=== PATIENT | female | born 1975 | race Caucasian/White ===

== ENCOUNTER 2016-07-30 09:43 | Inpatient (IN) | payer MEDICARE, BC ==
[2016-07-30] MEDS ORDERED: Midazolam* 1 MG/ML 10 ML VIAL (10 MG) IV ONE (10:02)
[2016-07-30 10:17] LABS: ALT 9 U/L (7-52); Albumin 3.2 g/dL (3.2-5.2); Alkaline Phosphatase 131 U/L (34-104); BUN/Creatinine Ratio 6.2 (8-20); Blood Urea Nitrogen 64 mg/dL (6-24); CO2 Carbon Dioxide 20 mmol/L (22-32); Calcium 9.4 mg/dL (8.6-10.3); Chloride 95 mmol/L (101-111); Cholesterol 141 mg/dL; EGFR African American 5.3 (>60); EGFR Non-African American 4.1 (>60); Globulin 4.1 g/dL (2-4); Glucose 217 mg/dL (70-100); HDL Cholesterol 35.1 mg/dL; LDL Cholesterol 78 mg/dL; Sodium 138 mmol/L (133-145); Total Protein 7.3 g/dL (6.4-8.9); Triglycerides 140 mg/dL
[2016-07-30 10:21] LABS: Hematocrit 34 % (35-47); Hemoglobin 10.4 g/dl (12.0-16.0); Mean Corpuscular HGB Conc 30 g/dl (31-36); Mean Corpuscular Hemoglobin 27 pg (27-31); Mean Corpuscular Volume 88 fL (80-97); Mean Platelet Volume 9 um3 (7.4-10.4); Red Cell Distribution Width 17 % (10.5-15); White Blood Count 20.4 10^3/ul (3.5-10.8)
[2016-07-30 10:23] LABS: Comments Flag Yes
[2016-07-30 10:26] LABS: Troponin I 0.15 ng/mL (<0.04)
--- NOTE | 2016-07-30 10:45 | RAD ---
INDICATION: Neurologic change. Code watson COMPARISON: CT brain November 30, 2015 TECHNIQUE: Noncontrast axial source images were acquired from the skull base to the vertex. FINDINGS: Ventricles/sulci: There is mild volume loss with compensatory dilatation of the CSF spaces. There is blood within the fourth ventricle. Brain parenchyma: The left thalamic hemorrhage has resolved and there are the sequela of this process which was acute at the time of the November 30, 2015 study. There is new pontine hemorrhage measuring 2.4 x 2.6 cm in transverse dimensions. There is extension of the hemorrhage into the fourth ventricle as noted above. There is mass effect on the sun'aq circummesocephalic cistern. Bifrontal and right occipital encephalomalacic changes are noted in addition to the left thalamic changes which are associated with mild volume loss. There are left basal ganglia consultations. Intracranial hemorrhage: Pontine hemorrhage as noted above. Extra-axial spaces: There are no definitive abnormal extra axial fluid collections or evidence of extra-axial mass. Calvarium: There is no calvarial fracture or other calvarial abnormality. Scalp: There is no evidence of scalp or extracalvarial soft tissue abnormality. Paranasal sinuses/mastoid: The paranasal sinuses and mastoid air cells are clear. Other: None. IMPRESSION: 1. 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 Extension of hemorrhage into the fourth ventricle. No interval development of hydrocephalus at this time. 2. Sequela of prior infarcts as described. Resolution of hemorrhagic lesion left thalamus. 3. Calcifications left basal ganglia Findings called to emergency department.
[2016-07-30 10:59] LABS: Anion Gap 23 mmol/L (2-11)
[2016-07-30] MEDS ORDERED: Propofol* 500 MG/50 ML BTL IV SCH (11:00)
--- NOTE | 2016-07-30 11:08 | RAD ---
INDICATION: Altered mental status. COMPARISON: Comparison is made with a prior chest x-ray study from November 26, 2015. TECHNIQUE: A portable view of the chest was obtained. FINDINGS: The patient is status post intubation. The endotracheal tube tip is at the dawson. Recommend repositioning. There is a nasogastric tube which ends is normal course. The catheter tip projects in the left upper quadrant. The heart is within normal limits in size. The lungs are clear. No pleural effusion is seen. The results of this exam were discussed with the referring clinician. IMPRESSION: THE ENDOTRACHEAL TUBE TIP IS LOW IN POSITION, RECOMMEND REPOSITIONING.
[2016-07-30] MEDS ORDERED: Propofol* 100 ML IV SCH (12:00)
--- NOTE | 2016-07-30 12:00 | RAD ---
INDICATION: Endotracheal tube repositioning. COMPARISON: Comparison is made with a prior chest x-ray study of the same date from approximately one hour earlier. TECHNIQUE: A portable view of the chest was obtained. FINDINGS: Cardiac and mediastinal contours appear to be within normal limits. The patient is status post intubation. The endotracheal tube has been repositioned. The catheter tip projects over the midline just below the level of the clavicular heads in normal position. There is a nasogastric tube which demonstrates normal course. The tip projects in the left upper quadrant. The lungs are clear. No pleural effusion is seen. There is increased density which projects over the right shoulder likely external to the patient. IMPRESSION: STATUS POST REPOSITIONING OF THE ENDOTRACHEAL TUBE.
--- NOTE | 2016-07-30 12:33 | CONSULT ---
Consult Consult: Neurosurgery Consult Date of consult: 07/30/16 Reason for consult: Pontine bleed HPI: This is a 40 year old female with past medical history significant for HTN , type I diabetes, renal failure on dialysis and thalamic bleed in 2016, who presented to the [facility] ED today after she was found unresponsive by her . Per her , she was drinking coffee and he heard her gasp. He returned to the room to find her unresponsive and therefore called 911. She was intubated in the emergency department. Past medical history: 1. HTN 2. End stage renal disease on dialysis 3. Type I diabetes 4. Peripheral artery disease 5. Asthma 6. History of CVA in 2014 7. History of thalamic bleed in 2016 Past surgical history: 1. Lumpectomy 2. Metatarsal removal 3. Laser eye surgery 4. Loop recorder placement 5. Peritoneal dialysis catheter placement Home medications: 1. Insulin GLARGINE(*) [Lantus(*)] 11 units SUBCUT BEDTIME 08/22/14 [History Confirmed 07/30/16] 2. amLODIPine TAB* [Norvasc 5 mg TAB*] 10 mg PO DAILY 04/15/15 [History Confirmed 07/30/16] 3. Atorvastatin* [Lipitor 10 MG*] 10 mg PO 2100 09/13/15 [History Confirmed ] 4. Calcitriol CAP* [Rocaltrol CAP*] 0.5 mcg PO WEEKLY 09/13/15 [History Confirmed 07/30/16] 5. Insulin LISPRO* [HumaLOG*] 0 - 100 unit SUBCUT DAILY 09/17/15 [History Confirmed 07/30/16] 6. Calcium Carbonate (Antacid) [Tums] 500 mg PO QID 10/11/15 [History Confirmed 07/30/16] 7. Darbepoetin Rebel* [Aranesp Albumin Free*] 10 units INJ DAILY 10/11/15 [ History Confirmed 07/30/16] 8. Metoclopramide TAB* [Reglan TAB*] 10 mg PO QID 10/11/15 [History Confirmed ] 9. Ondansetron [Zofran 8 MG Odt] 8 mg PO QID PRN 10/11/15 [History Confirmed ] 10. Clopidogrel TAB* [Plavix TAB*] 75 mg PO DAILY 07/30/16 [History Confirmed ] 11 Pantoprazole TAB (NF) [Protonix TAB (NF)] 40 mg PO DAILY 07/30/16 [History Confirmed 07/30/16] Allergies: 1. Ciprofloxacin 2. Doxycycline 3. Gabapentin 4. Levetiracetam 5. Pregabalin 6. Phosphate 7. [place] 8. Wheat Social history: This patient lives at home with her . ROS: Unable to obtain secondary to sedation and intubation. Physical exam: Vital Signs: Temp Pulse Resp BP Pulse Ox 98.2 F 95 20 134/78 99 07/30/16 12:03 07/30/16 12:03 07/30/16 12:03 07/30/16 12:03 07/30/16 12:03 General: Sedated and intubated. HEENT: Head is normocephalic and atraumatic. Pupils are 2mm, equal and nonreactive. Brown colored discharge from nares and mouth. Neck: Supple, symmetric. CV: Regular rate and rhythm. Radial pulses palpable. Lungs: Mild rhonchi present. Intubated. Abdomen: Peritoneal dialysis catheter present, no erythema or discharge. Abdomen is soft and nontender. Hypoactive bowel sounds. Neuro: Unable to respond verbally. Withdraws to painful stimuli. Minimal spontaneous movements. Pupils nonreactive. Absent corneal reflex bilaterally. Gag reflex intact. Imagin. CT brain 07/30/16 shows pontine hemorrhage with extension into the fourth ventricle. Assessment: This is a 40 year old chronically ill female who presented to the [facility] ED and was found to have a pontine hemorrhage with extension into the fourth ventricle. Neuro exam is limited secondary to sedation. However, pupils nonreactive, withdraws to pain, absent corneal reflex, intact gag reflex. She is intubated currently. I discussed this case with Dr. Jimenez and there is no beneficial surgical intervention indicated for this hemorrhage. The patient's is interested in a second opinion from [facility] as the patient receives dialysis there and care for other conditions. Dr. Leal is consulting as well and has been in contact with neurosurgeon at [facility] who has reviewed the brain CT. Plan: 1. No neurosurgical intervention recommended
--- NOTE | 2016-07-30 14:35 | HP ---
H&P (Free Text) History and Physical: History and Physical - Critical Care Requesting Physician: Dr Irvin Jean Reason for admission: Pontine hemorrhage Limitations in history/physical: intubated, unresponsive Date of admission: 07/30/2016 HPI: 40y F with pmhx of HTN, DM, ESRD on peritoneal HD, PVD s/p amputation of toes, Asthma, History of CVA 2014, history of Thalamic hemorrhage 2015; who presents from home when she yellowed out, then was unresponsive. She was brought to the emergency department, intubated. CT head was done showing a pontine hemorrhage with extension into the 4th ventricle. Neurosurgical consultation was obtained in the ED and they stated no benefit to intervention given neuro status and location of bleed. A second opinion from [facility] was obtained, Dr Leal (neurologist) discussed with them, and they also did not deem her a surgical candidate given neurological status. Physical exam showed unresponsiveness when I saw patient. She was given versed for sedation and propofol; propofol is off now though. She has no pupillary constriction, 2mm bilaterally, no corneal reflex, cough+ while intubated, gag +/ -, she does flex to painful stimuli only. ROS: unable to be obtained due to mental status and intubated PMHx: HTN, DM, ESRD on peritoneal HD, PVD, Asthma, CVA 2014, thalamic hemorrhage 2016 PSHx: periteoneal catheter placement; amputation of toes for PVD; laser eye surgery, loop recorder placement; lumpectomy. Family History: cardiac disease, HTN, DM Social History: Alcohol none, Smoking none, Drug use in past; + Allergies: Allergies Allergy/AdvReac Type Severity Reaction Status Date / Time Ciprofloxacin [From Cipro] Allergy Rash Verified 11/25/15 16:31 Doxycycline Allergy See Comment Verified 11/25/15 16:31 Gabapentin Allergy Unknown Verified 11/25/15 16:31 Reaction Details Levetiracetam [From Keppra] Allergy Unknown Verified 11/25/15 16:31 Reaction Details Phosphate Allergy Unknown Verified 11/25/15 16:31 Reaction Details Pregabalin [From Lyrica] Allergy Unknown Verified 11/25/15 16:31 Reaction Details orange Allergy Diarrhea Uncoded 11/25/15 16:31 wheat Allergy Diarrhea Uncoded 11/25/15 16:31 Home Medications: Insulin GLARGINE(*) [Lantus(*)] 11 units SUBCUT BEDTIME 08/22/14 [History Confirmed 07/30/16] amLODIPine TAB* [Norvasc 5 mg TAB*] 10 mg PO DAILY 04/15/15 [History Confirmed 07/30/16] Atorvastatin* [Lipitor 10 MG*] 10 mg PO 2100 09/13/15 [History Confirmed ] Calcitriol CAP* [Rocaltrol CAP*] 0.5 mcg PO WEEKLY 09/13/15 [History Confirmed 07/30/16] Insulin LISPRO* [HumaLOG*] 0 - 100 unit SUBCUT DAILY 09/17/15 [History Confirmed 07/30/16] Calcium Carbonate (Antacid) [Tums] 500 mg PO QID 10/11/15 [History Confirmed ] Darbepoetin Rebel* [Aranesp Albumin Free*] 10 units INJ DAILY 10/11/15 [History Confirmed 07/30/16] Metoclopramide TAB* [Reglan TAB*] 10 mg PO QID 10/11/15 [History Confirmed 07/30] Ondansetron [Zofran 8 MG Odt] 8 mg PO QID PRN 10/11/15 [History Confirmed ] Clopidogrel TAB* [Plavix TAB*] 75 mg PO DAILY 07/30/16 [History Confirmed ] Pantoprazole TAB (NF) [Protonix TAB (NF)] 40 mg PO DAILY 07/30/16 [History Confirmed 07/30/16] Tele: NSR Vitals: Vital Signs Temp 98.2 F 07/30/16 12:03 Pulse 99 07/30/16 14:00 Resp 16 07/30/16 14:00 BP 121/78 07/30/16 14:00 Pulse Ox 100 07/30/16 14:00 Intake & Output 07/29/16 07/30/16 07/30/16 18:59 06:59 18:59 Intake Total 151 Output Total 0 Balance 151 Weight 108 lb 14.534 oz Intake: IV Fluids 151 NS (0.9%) 151 Oral 0 Output: Napoles 0 O2/Vent: AC 14/450, 50%, sat 100%, triggering the vent at 16-18 Infusions: NS 75cc/hr Current Medications: none Physical Exam: General: intubated, unresponsive Head: normocephalic, atraumatic HEENT: no pallor, no icterus, moist mucous membranes Neck: soft, supple, no jvd, no stridor CVS: normal rate, normal rhythm, no murmur Resp: bilateral air entry, no rhales, no wheeze, no rhonchi, no acc muscle use Abdomen: soft, nontender, nondistended, bowel sounds present Ext: pulses+, warm, no edema Skin: intact, no breakdown, no dryness Neuro: awake, alert, orientedx3, moving all extremities, no gross focal deficit Labs: Laboratory Results - last 24 hr 07/30/16 07/30/16 07/30/16 09:51 09:51 09:51 WBC 20.4 H RBC 3.90 L Hgb 10.4 L Hct 34 L MCV 88 MCH 27 MCHC 30 L RDW 17 H Plt Count 331 MPV 9 Neut % (Auto) 81.9 Lymph % (Auto) 7.3 L [place] % (Auto) 6.1 Eos % (Auto) 2.8 Baso % (Auto) 1.9 Absolute Neuts (auto) 16.7 H Absolute Lymphs (auto) 1.5 Absolute Monos (auto) 1.2 H Absolute Eos (auto) 0.6 Absolute Basos (auto) 0.4 H Absolute Nucleated RBC 0.01 Nucleated RBC % 0 INR (Anticoag Therapy) 0.94 APTT 35.1 Sodium 138 Potassium TNP Chloride 95 L Carbon Dioxide 20 L Anion Gap 23 H BUN 64 H Creatinine 10.38 H Est GFR ( Amer) 5.3 Est GFR (Non-Af Amer) 4.1 BUN/Creatinine Ratio 6.2 L Glucose 217 H POC Glucose (mg/dL) Lactic Acid Calcium 9.4 Total Bilirubin 0.30 AST TNP ALT 9 Alkaline Phosphatase 131 H Troponin I 0.15 H* Total Protein 7.3 Albumin 3.2 Globulin 4.1 H Albumin/Globulin Ratio 0.8 L Triglycerides 140 Cholesterol 141 LDL Cholesterol 78 HDL Cholesterol 35.1 Blood Type Antibody Screen 07/30/16 07/30/16 07/30/16 09:51 09:51 10:50 WBC RBC Hgb Hct MCV MCH MCHC RDW Plt Count MPV Neut % (Auto) Lymph % (Auto) [place] % (Auto) Eos % (Auto) Baso % (Auto) Absolute Neuts (auto) Absolute Lymphs (auto) Absolute Monos (auto) Absolute Eos (auto) Absolute Basos (auto) Absolute Nucleated RBC Nucleated RBC % INR (Anticoag Therapy) APTT Sodium Potassium Chloride Carbon Dioxide Anion Gap BUN Creatinine Est GFR ( Amer) Est GFR (Non-Af Amer) BUN/Creatinine Ratio Glucose POC Glucose (mg/dL) 191 H Lactic Acid 1.7 Calcium Total Bilirubin AST ALT Alkaline Phosphatase Troponin I Total Protein Albumin Globulin Albumin/Globulin Ratio Triglycerides Cholesterol LDL Cholesterol HDL Cholesterol Blood Type A Positive Antibody Screen Negative Imaging: ct head 07/30 - reviewed - pontine hemorrhage with mass effect, obliteration of adjacent cistern, extension of hemorrhage into fourth ventricle, no hydro. prior infarcts+ Assessment: 40y F with pmhx of HTN, DM, ESRD on peritoneal HD, PVD s/p amputation of toes, Asthma, History of CVA 2014, history of Thalamic hemorrhage 2015; who presents from home when she yellowed out, then was unresponsive. INtubated in ER. Found to have pontine hemorrhage with ventricular extension. Neurosurgical consults from [facility] and [facility] with no indication for intervention given neuro status. -Acute Pontine Hemorrhage -Acute Respiratory Failure -Leukocytosis Plan: Neuro- neurochecks q1h. asp prec. fall prec. discussion with neurology, due to no neurosurgical intervention, liklihood of progression to ventricular obstruction, hydrocephalus, raised ICP. Progressive neurological decline and even cardiac arrest. At length discussion with family was done about plan, outcomes. They do not wish to have her on the ventilator and she would not want to be on a ventilator either. They would like a DNR if she is to arrest. The at bedside has already desired for her to come off the vent as a compassionate wean. He understands, as we explained, that she may or may not breath and likely would have respiratory and cardiac arrest. He does understand that and does not want her uncomfortable. Will await further family and revisit compassionate weaning today. CVS- cont NS infusion. no hypotension noted. DNR. Resp- on AC on vent. no changes to be made. cont to keep sat>92%. ID- leukocytosis noted, likely reactive. no fevers. will hold abx. GI-NPO Renal- on peritoneal HD. No indication for HD at this time. Heme- hg stable. not on AC. on plavix for PVD. Will ask family if they will consider plt transfusion but likely of no benefit given DNR and planned compassionate wean. Endo-FS as needed. Musculsk- none Wounds- none Nutrition- NPO DVT prophylaxis: none GI prophylaxis: pepcid Central Line: none Arterial Line: none Napoles Cathetor: none Disposition: admit to ICU for pontine hemorrhage Code Status: full code -> now DNR as per Total Critical Care time is 60 minutes, excluding procedures/teaching Vish Barriga MD Launching Pad Mechanic (Electronically Signed)
--- NOTE | 2016-07-30 14:54 | PN ---
Progress Note - Progress Note Date of Service: 07/30/16 Note: Current GCS was ~5, no eye movement, no verbalization, flexion to painful stimuli only; currently no flexion to movement off sedation - GCS is now 3
[2016-07-30 15:12] VITALS: BP 119/74
--- NOTE | 2016-07-30 15:40 | CONS ---
NEUROLOGY CONSULTATION: DATE OF CONSULT: 07/30/16 REASON FOR CONSULT: Code Chavez. HISTORY OF PRESENT ILLNESS: Marcela Somers is a 40-year-old woman with a history of type 1 diabetes; end-stage renal disease, on dialysis; ischemic stroke in 2014 and more recent thalamic hemorrhagic stroke in November 2015, who presented this morning after her found her unresponsive on the couch. He reports that she woke up this morning and seemed to be her usual self and he left her with some coffee in the living room and then heard her make a moaning/ gasping sound and when he went in to check on her, she was unresponsive with some stiffening and movements of her upper extremities, and was not breathing well. He rolled her on her left side and reports that some coffee came out of her nose and her mouth, so he is worried that she had some aspiration with this event. He indicates that she presented similarly when she had her thalamic stroke in November and was concerned that she was having another stroke, so he activated EMS and she was brought in. She was not supporting her own respirations well when she presented to the emergency department and was intubated prior to my evaluation. She had received 10 mg of Versed for intubation. Her initial CAT scan showed a pontine hemorrhage with extension into the fourth ventricle, which measures around 10 cc. At this point, she has been transferred to the ICU and Neurosurgery is consulting as well. The had initially indicated that he wanted her transferred to [place] because she gets her dialysis there and he indicates that any "procedures" that need to be done are typically done there as well. PAST MEDICAL HISTORY: 1. Type 1 diabetes. 2. Peripheral arterial disease. 3. End-stage renal disease, on dialysis. 4. Stroke in 2014, presumably ischemic. 5. Hypertension. 6. Asthma. 7. Left thalamic stroke in November 2015. PAST SURGICAL HISTORY: 1. Amputations of portions of her feet bilaterally in the past. 2. Lumpectomy. 3. Hernia repair. 4. Laser eye surgery. 5. Loop recorder placement. 6. Dialysis catheter placement x2. HOME MEDICATIONS: Not confirmed at this time, but according to the EMR include: 1. Amlodipine 10 mg daily. 2. Pantoprazole 40 mg daily. 3. Zofran 8 mg 4 times a day p.r.n. 4. Reglan 10 mg 4 times a day. 5. Insulin lispro. 6. Insulin Lantus. 7. Darbepoetin genny daily. 8. Plavix 75 mg daily. 9. Tums 500 mg 4 times daily. 10. Calcitriol 0.5 mcg weekly. 11. Lipitor 10 mg daily. ALLERGIES: Includes CIPRO, which causes a rash; DOXYCYCLINE; GABAPENTIN; LEVETIRACETAM; PHOSPHATE; PREGABALIN; ORANGE; WHEAT. FAMILY HISTORY: Noncontributory at this time. SOCIAL HISTORY: She lives at home with her . She uses an electric wheelchair at baseline, though her indicates she is able to take a couple of steps and feed herself. REVIEW OF SYSTEMS: Not obtainable at this time due to the patient's acuity. PHYSICAL EXAM: Vital Signs: Temperature 98.2, blood pressure 134/78, heart rate 95, oxygen saturation is 99% on 40% FiO2. On my initial evaluation, the patient had just been intubated and given 10 mg of Versed for intubation. She did not respond to voice. She had no eye opening to noxious stimulation. Prior to her intubation, she had no verbal output. Pupils were 2 mm, not clearly reactive. I could not elicit eye movements with VORs. She had no obvious facial asymmetry. She had no response to noxious stimulation in the right upper extremity and no consistent response in the right lower extremity, but was sometimes moving the left upper and lower extremities spontaneously, but potentially reflexively, but also did flex to noxious stimulation on the left side. Her heart is in a regular rate and rhythm. She has coarse breath sounds on the ventilator. DIAGNOSTIC STUDIES/LAB DATA: Laboratory data reviewed includes a CBC with a white count of 20.4, hematocrit of 34, platelet count of 331,000. Chemistry panel shows creatinine of 10.38, BUN of 64, alkaline phosphatase of 131, troponin of 0.15. Coagulation studies are normal. Her brain CT was personally reviewed and showed pontine hemorrhage with extension into the fourth ventricle. There was no obvious enlargement of the lateral ventricles or third ventricle at this point. I measured the volume of the hemorrhage to be approximately 10 cc. IMPRESSION AND RECOMMENDATIONS: Marcela Somers is a 40-year-old chronically- ill woman with a history of type 1 diabetes, end-stage renal disease, recent left thalamic hemorrhage, now admitted with a pontine hemorrhage with extension into the fourth ventricle. I discussed with the that this is a high likelihood to result in her and if she survives this hemorrhagic stroke, she is likely to have high morbidity associated with it. The ER had contacted Dr. Jimenez at the time of my evaluation down in the emergency department, who felt there was no neurosurgical intervention indicated at this point. The did request an opinion from the neurosurgery team at [place] as well and images have been pushed over. I spoke with Dr. Hess who felt that if her GCS was 5 or above, then she could potentially benefit from an EVD and we will be getting an additional exam off sedation to better assess this at this point. I will be calling her back with that information and we will discuss with the family at that time whether the desires transfer for her. He has indicated that she has expressed wishes that she does not want to be on any extended life support and that if she cannot be somewhat independent, then she would not want aggressive measures. [id number]/[facility] #: [id number] DEANDRA
--- NOTE | 2016-07-30 15:57 | ED ---
Tori Thomas Edward, scribed for Irvin Jean MD on 07/30/16 at 1046 . Syncope/Near Syncope - HPI Summary HPI Summary: Level 5 caveat due to patient being unresponsive. Information provided by EMS and patient's . 40 y/o female BIBA s/p syncopal episode at 08:40 this morning. Per , the episode was sudden onset and "exactly" like a hemorrhagic stroke she had in 2015. While in another room, the heard the patient shriek for help and gasp for air before patient's LOC. Patient was drinking her coffee at the time. Patient is still unresponsive. Associated sx: productive cough. PMHx renal failure with at-home dialysis, over 20 years of diabetes. SHx - half of left foot and all right toes removed. - History Of Current Complaint Time Seen by Provider: 07/30/16 09:58 Hx Obtained From: Patient Onset/Duration: Sudden Onset - 08:40 this morning, Still Present Context: Witnessed - By , Loss Of Consciousness Associated Signs And Symptoms: Other - Productive cough, LOC, unresponsive - Allergies/Home Medications Allergies/Adverse Reactions: Allergies Allergy/AdvReac Type Severity Reaction Status Date / Time Ciprofloxacin [From Cipro] Allergy Rash Verified 11/25/15 16:31 Doxycycline Allergy See Comment Verified 11/25/15 16:31 Gabapentin Allergy Unknown Verified 11/25/15 16:31 Reaction Details Levetiracetam [From Keppra] Allergy Unknown Verified 11/25/15 16:31 Reaction Details Phosphate Allergy Unknown Verified 11/25/15 16:31 Reaction Details Pregabalin [From Lyrica] Allergy Unknown Verified 11/25/15 16:31 Reaction Details orange Allergy Diarrhea Uncoded 11/25/15 16:31 wheat Allergy Diarrhea Uncoded 11/25/15 16:31 Home Medications: Home Medications Clopidogrel TAB* [Plavix TAB*] 75 mg PO DAILY 07/30/16 [History Confirmed ] Pantoprazole TAB (NF) [Protonix TAB (NF)] 40 mg PO DAILY 07/30/16 [History Confirmed 07/30/16] PMH/Surg Hx/FS Hx/Imm Hx Previously Healthy: No Endocrine/Hematology History: Reports: Hx Anticoagulant Therapy, Hx Blood Transfusions, Hx Diabetes, Hx Anemia Denies: Hx Systemic Lupus Erythematosus Cardiovascular History: Reports: Hx Angina, Hx Deep Vein Thrombosis, Hx Embolism - to toes and fingers, Hx Hypercholesterolemia, Hx Hypertension, Hx Peripheral Vascular Disease, Hx Syncope, Other Cardiovascular Problems/ Disorders - Loop Recorder placed 2014 Denies: Hx Pacemaker/ICD Respiratory History: Reports: Hx Asthma, Hx Pneumonia, Hx Seasonal Allergies Denies: Hx Chronic Obstructive Pulmonary Disease (COPD), Hx Sleep Apnea - Aj states needs testing. GI History: Reports: Other GI Disorders - Slow digestion History: Reports: Hx Chronic Renal Failure, Hx Dialysis, Hx Renal Disease - ESRD on daily dialysis Musculoskeletal History: Reports: Hx Osteoporosis Denies: Hx Rheumatoid Arthritis, Hx Back Problems Sensory History: Reports: Hx Cataracts - left eye, Hx Contacts or Glasses, Hx Vision Problem Denies: Hx Hearing Aid Opthamlomology History: Reports: Hx Cataracts - left eye, Hx Contacts or Glasses , Hx Vision Problem Neurological History: Reports: Hx Migraine, Hx Seizures - Aj says from medication - Dilauted/Fentanyl, Other Neuro Impairments/Disorders - vision issues s/p cva Denies: Hx Dementia Psychiatric History: Denies: Hx Panic Disorder - Cancer History Hx Chemotherapy: No - Surgical History Surgery Procedure, Year, and Place: lumpectomy left breast, hernia repair,PD TUBES REMOVED AND REPLACED,[facility] EYEhernia repair,. PD TUBES REMOVED AND REPLACED,. [facility]. 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 Denies: Hx Clostridium Difficile, Hx Hepatitis, Traveled Outside the [place] in Last 30 Days - Family History Known Family History: Positive: Cardiac Disease, Hypertension, Diabetes, Other - AAA - Social History Alcohol Use: None Hx Substance Use: Yes Substance Use Type: Reports: None Substance Use Comment - Amount & Last Used: Prescribed marinol Hx Tobacco Use: No Smoking Status (MU): Never Smoked Tobacco Type: Cigarettes Review of Systems - ROS Summary Review of Systems Summary: LEVEL 5 CAVEAT DUE TO PATIENT BEING UNRESPONSIVE All Other Systems Reviewed And Are Negative: No Physical Exam - Summary Physical Exam Summary: LEVEL 5 CAVEAT DUE TO PATIENT BEING UNRESPONSIVE Vital Signs On Initial Exam: Initial Vitals BP 163/93 07/30/16 09:47 Diagnostics - Vital Signs Vital Signs Temp Pulse Resp BP Pulse Ox 07/30/16 11:30 99.0 F 96 17 132/83 100 07/30/16 11:15 98.4 F 100 15 98/65 100 07/30/16 11:00 93.9 F 99 18 123/82 100 07/30/16 10:48 98.2 F 100 16 114/76 100 07/30/16 10:45 102 15 114/76 99 07/30/16 10:30 106 14 115/76 100 07/30/16 10:26 108 23 122/77 98 07/30/16 10:01 113/72 07/30/16 10:00 112 17 96 07/30/16 09:49 117 17 100 07/30/16 09:47 163/93 - Laboratory Lab Results: Lab Results 07/30/16 07/30/16 07/30/16 Range/Units 09:51 09:51 09:51 WBC 20.4 H (3.5-10.8) 10^3/ul RBC 3.90 L (4.0-5.4) 10^6/ul Hgb 10.4 L (12.0-16.0) g/dl Hct 34 L (35-47) % MCV 88 (80-97) fL MCH 27 (27-31) pg MCHC 30 L (31-36) g/dl RDW 17 H (10.5-15) % Plt Count 331 (150-450) 10^3/ul MPV 9 (7.4-10.4) um3 Neut % (Auto) 81.9 (38-83) % Lymph % (Auto) 7.3 L (25-47) % [place] % (Auto) 6.1 (1-9) % Eos % (Auto) 2.8 (0-6) % Baso % (Auto) 1.9 (0-2) % Absolute Neuts (auto) 16.7 H (1.5-7.7) 10^3/ul Absolute Lymphs (auto) 1.5 (1.0-4.8) 10^3/ul Absolute Monos (auto) 1.2 H (0-0.8) 10^3/ul Absolute Eos (auto) 0.6 (0-0.6) 10^3/ul Absolute Basos (auto) 0.4 H (0-0.2) 10^3/ul Absolute Nucleated RBC 0.01 10^3/ul Nucleated RBC % 0 INR (Anticoag Therapy) 0.94 (0.89-1.11) APTT 35.1 (26.0-36.3) seconds Sodium 138 (133-145) mmol/L Potassium TNP Chloride 95 L (101-111) mmol/L Carbon Dioxide 20 L (22-32) mmol/L Anion Gap 23 H (2-11) mmol/L BUN 64 H (6-24) mg/dL Creatinine 10.38 H (0.51-0.95) mg/dL Est GFR ( Amer) 5.3 (>60) Est GFR (Non-Af Amer) 4.1 (>60) BUN/Creatinine Ratio 6.2 L (8-20) Glucose 217 H (70-100) mg/dL POC Glucose (mg/dL) (74-106) mg/dL Lactic Acid (0.5-2.0) mmol/L Calcium 9.4 (8.6-10.3) mg/dL Total Bilirubin 0.30 (0.2-1.0) mg/dL AST TNP ALT 9 (7-52) U/L Alkaline Phosphatase 131 H (34-104) U/L Troponin I 0.15 H* (<0.04) ng/mL Total Protein 7.3 (6.4-8.9) g/dL Albumin 3.2 (3.2-5.2) g/dL Globulin 4.1 H (2-4) g/dL Albumin/Globulin Ratio 0.8 L (1-3) Triglycerides 140 mg/dL Cholesterol 141 mg/dL LDL Cholesterol 78 mg/dL HDL Cholesterol 35.1 mg/dL Blood Type Antibody Screen 07/30/16 07/30/16 07/30/16 Range/Units 09:51 09:51 10:50 WBC (3.5-10.8) 10^3/ul RBC (4.0-5.4) 10^6/ul Hgb (12.0-16.0) g/dl Hct (35-47) % MCV (80-97) fL MCH (27-31) pg MCHC (31-36) g/dl RDW (10.5-15) % Plt Count (150-450) 10^3/ul MPV (7.4-10.4) um3 Neut % (Auto) (38-83) % Lymph % (Auto) (25-47) % [place] % (Auto) (1-9) % Eos % (Auto) (0-6) % Baso % (Auto) (0-2) % Absolute Neuts (auto) (1.5-7.7) 10^3/ul Absolute Lymphs (auto) (1.0-4.8) 10^3/ul Absolute Monos (auto) (0-0.8) 10^3/ul Absolute Eos (auto) (0-0.6) 10^3/ul Absolute Basos (auto) (0-0.2) 10^3/ul Absolute Nucleated RBC 10^3/ul Nucleated RBC % INR (Anticoag Therapy) (0.89-1.11) APTT (26.0-36.3) seconds Sodium (133-145) mmol/L Potassium Chloride (101-111) mmol/L Carbon Dioxide (22-32) mmol/L Anion Gap (2-11) mmol/L BUN (6-24) mg/dL Creatinine (0.51-0.95) mg/dL Est GFR ( Amer) (>60) Est GFR (Non-Af Amer) (>60) BUN/Creatinine Ratio (8-20) Glucose (70-100) mg/dL POC Glucose (mg/dL) 191 H (74-106) mg/dL Lactic Acid 1.7 (0.5-2.0) mmol/L Calcium (8.6-10.3) mg/dL Total Bilirubin (0.2-1.0) mg/dL AST ALT (7-52) U/L Alkaline Phosphatase (34-104) U/L Troponin I (<0.04) ng/mL Total Protein (6.4-8.9) g/dL Albumin (3.2-5.2) g/dL Globulin (2-4) g/dL Albumin/Globulin Ratio (1-3) Triglycerides mg/dL Cholesterol mg/dL LDL Cholesterol mg/dL HDL Cholesterol mg/dL Blood Type A Positive Antibody Screen Negative Result Diagrams: 07/30/16 09:51 07/30/16 09:51 Lab Statement: Any lab studies that have been ordered have been reviewed, and results considered in the medical decision making process. - Radiology CXR Xray Interpretation: Positive (See Comments) - THE ENDOTRACHEAL TUBE TIP IS LOW IN POSITION, RECOMMEND REPOSITIONING. Radiology Interpretation Completed By: Radiologist - CT BRAIN CT CT Interpretation: Positive (See Comments) - 1. 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 Extension of hemorrhage into the fourth ventricle. No interval development of hydrocephalus at this time. 2. Sequela of prior infarcts as described. Resolution of hemorrhagic lesion left thalamus. 3. Calcifications left basal ganglia CT Interpretation Completed By: Radiologist - EKG 1 EKG Interpretation: 09:49 - Sinus tachycardia @ 105 bpm. Flipped T's in V5 and V6. No ectopy. Course/Dx Assessment/Plan: Discussed care with Dr. Lizz Leal of Neurology (10:22) and Dr. Jimenez of Neurosurgery (10:48) - indicated [facility] has necessary facilities to treat patient. Discussed with , who agreed to stay in [facility]. Discussed case with Dr. Vish Brariga of ICU (11:02) - agreed to admit. Discussed BRAIN CT findings with Dr. Jimenez (11:08) - specifically noted a"pontine hemorrhage as described with associated mass efect with obliteration of the adjacent cistern. Extension of hemorrhage into the fourth ventricle". Dr. Jimenez suggested no neurosurgical intervention. ADMIT ICU CRITICAL. - Diagnoses Provider Diagnoses: Intracranial bleed - Critical Care Time Critical Care Time: 30-74 min Discharge - Discharge Plan Condition: Critical Disposition: ADMITTED TO [facility] documentation as recorded by the Tori king Edward accurately reflects the service I personally performed and the decisions made by me, Irvin Jean MD.
[2016-07-30] MEDS ORDERED: Morphine INJ* 2 MG/ML 1 ML SYRINGE ONE (16:15)
[2016-07-30] MEDS ORDERED: Morphine INJ* 2 MG/ML 1 ML SYRINGE IV PRN (16:19)
--- NOTE | 2016-07-30 16:29 | PN ---
Progress Note - Progress Note Date of Service: 07/30/16 Note: Compassionate weaning note At length discussion as documented earlier in notes. Patient is admitted with a pontine hemorrhage, unresponsive, intubated. No surgical intervention as per neurosurgery at [facility] and [facility]. GCS 3-5, no sedation. no pupillary reaction, no corneals illicited. cough+. breathing above the vent at times. Myself and neurology has discussed options of further care. Likely progression to severe neurological decline or even arrest. Family understands the [facility] outcomes here, and other brothers of patient. They state patient would not want any of ventilator and life support knowing she would not make it through this. They have decided on compassionate wean, knowing she may develop respiratory arrest. THey have made her DNR/DNI. Based on medical problems, I do agree with family that her quality of life would be severe limited and reduced given extent of neurological insult, including the fact she may remain in a Comatose state, or be vent dependant. They are following what they patient would have wanted. I asked brothers and at bedside, and they were in agreement. We will extubate patient. Comfort measures, including morphine for resp distress and pain will be started. Pastoral services will be contacted. Organ-donation has been contacted and did disuss with family already about donation, which they declined. Vish Barriga Shampoo Technician
[2016-07-30] MEDS ORDERED: LORazepam INJ* 2 MG/ML 1 ML VIAL ONE (16:34)
[2016-07-30] MEDS ORDERED: Morphine INJ* 2 MG/ML 1 ML SYRINGE IV ONE (17:00)
[2016-07-30] MEDS ORDERED: HYDROmorphone* 2 MG/ML 1 ML SYR IV SLOW PU PRN (17:00)
[2016-07-30] MEDS ORDERED: LORazepam INJ* 2 MG/ML 1 ML VIAL IV PUSH PRN (17:00)
[2016-07-30] MEDS ORDERED: HYDROmorphone* 2 MG/ML 1 ML SYR ONE (17:01)
--- NOTE | 2016-07-31 00:35 | PN ---
Progress Note - Progress Note Date of Service: 07/31/16 Note: Case reviewed w/ H MD Ladarius vice president medical affairs who agreed to release of the body.
--- NOTE | 2016-07-31 13:27 | DS ---
Discharge Summary Patient Name: Marcela Somers ; Acc Number [id number] Date of Admission: 07/30/2016 Date of Discharge: 07/30/2016 Attending: Dr Vish Barriga Consultants: Dr Hargrove (neurosurgery), Dr Lizz Leal (neurology) Admitting Diagnoses: 1) Acute Pontine Hemorrhage 2) Acute Respiratory Failure Discharge Diagnoses: 1) Acute Pontine Hemorrhage 2) Acute Respiratory Failure HPI/Hospital Course: 40y F with pmhx of HTN, DM, ESRD on peritoneal HD, PVD s/p amputation of toes, Asthma, History of CVA 2014, history of Thalamic hemorrhage 2015; who presents from home when she yellowed out, then was unresponsive. She was brought to the emergency department, intubated. CT head was done showing a pontine hemorrhage with extension into the 4th ventricle. Neurosurgical consultation was obtained in the ED and they stated no benefit to intervention given neurological status and location of bleed. A second opinion from [facility] was obtained, Dr Leal (neurologist) discussed with them, and they also did not deem her a surgical candidate given neurological status. Physical exam showed unresponsiveness when I saw patient. She was given versed for sedation and propofol; propofol is off now though during examination. She has no pupillary reactivity, 2mm bilaterally constricted, no corneal reflex, cough+ while intubated, gag +/-, she does flex to painful stimuli only. GCS was estimated to be 5 at that time. Spontaneous breaths on spontaneous mode on ventilator were seen, unclear if they were effective. Discussion with family about current status, neurological injury, prognosis in the coming 24 hours given no surgical intervention was explained. The , along with family at bedside, understood the poor recovery, likely severe neurological injury or even high likelihood of . Dr Leal and myself were at bedside. They requested for compassionate weaning given poor outcome and wishes the patient would not want to be on a ventilator when she dies or be stuck on a ventilator. Brothers of patient arrived shortly after, we discussed DNR/DNI and compassionate weaning options. There was an agreement. Patient was compassionately extubated. No drips were onboard. She was started on comfort care measures for respiratory distress and discomfort, which was discussed with family. Patient at 1804 on 07/30/2016 in the ICU with family at bedside. corporate claims examiner contacted by hospitalist physician and body was released. Procedures/Imaging: Computer Tomography of the Brain Discharge Medications: none Diet: none Activity: none Condition upon discharge: 07/30/2016 at 1804 Disposition: / Total Discharge time >30minutes Vish Barriga MD [employer] Leader [employer] (Electronically Signed)
--- NOTE | 2016-07-31 14:59 | DS ---
CC: Dr. Pruitt * SUMMARY: DATE OF ADMISSION: 07/30/16 DATE OF : 07/30/16 TIME OF : 1803. ATTENDING PHYSICIAN: Vish Barriga MD * (DICTATED BY RICHIE CHOWDHURY NP) PRINCIPAL DIAGNOSIS: Pontine hemorrhage. HISTORY OF PRESENT ILLNESS: I will refer you to Dr. Barriga's H and P. Ms. Somers was a 40-year-old female patient with multiple medical problems, history of hypertension and diabetes, end-stage renal disease, peripheral vascular disease, asthma, history of CVA and thalamic hemorrhage, who presented to the ER today stating that the patient had yelled out and then became unresponsive. She came to the ER, was intubated. CT head showed a pontine hemorrhage. The hemorrhage had extension to the fourth ventricle. Neurosurgery consultation was obtained in the ED and they stated there was no benefit in intervention given the neuro status and location of the bleed. A second opinion from [facility] was obtained from Dr. Leal. Discussed with them and they also said that the patient was deemed not to be a surgical candidate given her neurological status. There was a discussion with the family about the plan and outcomes. The family did not want her to pass away on a ventilator and that she would not want to be on a ventilator. The patient was made a DNR and the family deemed that they want to make the patient comfortable and not prolong her suffering, so the patient's family did withdraw her care. She was extubated terminally and she was placed on comfort measures only. Shortly after extubation, she , she became apneic, in addition to this also became asystole. At 180, she was pronounced surrounded by her family. Autopsy was refused by the family. I am going to touch base with the medical exam because she was only here for such a short period of time where I suspect this again will not be referred to ME as well. RICHIE CHOWDHURY NP [id number]/[facility] #: [id number] MTDD
== END 2016-07-30 18:04 | disposition expired | DRG 64 ==
LOC: ED 09:43 → ICU 11:54
PROVIDERS: ADMIT Internal Medicine Critical Care Medicine; ATTEND Internal Medicine Critical Care Medicine
PROC: 0BH17EZ Insertion of Endotracheal Airway into Trachea, Via Natural or Artificial Opening (ICD-10-PCS; principal; 2016-07-30)
PROC: 5A1935Z Respiratory Ventilation, Less than 24 Consecutive Hours (ICD-10-PCS; 2016-07-30)
DX: I61.3 Nontraumatic intracerebral hemorrhage in brain stem (principal); N18.6 End stage renal disease; J96.00 Acute respiratory failure, unspecified whether with hypoxia or hypercapnia; I12.0 Hypertensive chronic kidney disease with stage 5 chronic kidney disease or end stage renal disease; J45.909 Unspecified asthma, uncomplicated; D72.829 Elevated white blood cell count, unspecified; Z66 Do not resuscitate; E78.00 Pure hypercholesterolemia, unspecified; M81.0 Age-related osteoporosis without current pathological fracture; H26.9 Unspecified cataract; G43.909 Migraine, unspecified, not intractable, without status migrainosus; R40.2433 Glasgow coma scale score 3-8, at hospital admission; Z51.5 Encounter for palliative care; E10.22 Type 1 diabetes mellitus with diabetic chronic kidney disease; E10.51 Type 1 diabetes mellitus with diabetic peripheral angiopathy without gangrene; Z99.2 Dependence on renal dialysis; Z89.429 Acquired absence of other toe(s), unspecified side; Z86.73 Personal history of transient ischemic attack (TIA), and cerebral infarction without residual deficits; Z82.49 Family history of ischemic heart disease and other diseases of the circulatory system; Z83.3 Family history of diabetes mellitus; Z88.8 Allergy status to other drugs, medicaments and biological substances; Z88.1 Allergy status to other antibiotic agents; Z91.018 Allergy to other foods; Z86.718 Personal history of other venous thrombosis and embolism; Z86.711 Personal history of pulmonary embolism; Z87.01 Personal history of pneumonia (recurrent)
CPT/HCPCS: 36415; 70450; 71010; 80053; 80061; 83605; 84484; 85025; 85610; 85730; 86850; 86900; 86901; 93005; 94002; 94760; J1170; J2060; J2250; J2270